=== PATIENT | female | born 1985 | race Caucasian/White ===

== ENCOUNTER 2019-11-19 | Emergency (ER) | payer SELFPAY ==
[~2019-11-19] MED LIST: PAXIL40 MG PO; PRENATAL1 TAB OR
[2019-11-20] MEDS ORDERED: TRAMADOL HCL50 MG PO (01:08)
== END 2019-11-20 01:36 | disposition home or self-care (01) | DRG 999 ==
DX: O9A.219 Injury, poisoning and certain other consequences of external causes complicating pregnancy, unspecified trimester (principal); S06.0X9A Concussion with loss of consciousness of unspecified duration, initial encounter; W19.XXXA Unspecified fall, initial encounter; Y92.008 Other place in unspecified non-institutional (private) residence as the place of occurrence of the external cause; Z3A.00 Weeks of gestation of pregnancy not specified

== ENCOUNTER 2019-11-22 | Emergency (ER) | payer SELFPAY ==
[~2019-11-22] MED LIST changes: +TRAMADOL HCL50 MG PO
[2019-11-22] MEDS ORDERED: POLYTRIM OD (05:17)
== END 2019-11-22 05:33 | disposition home or self-care (01) | DRG 999 ==
DX: O9A.219 Injury, poisoning and certain other consequences of external causes complicating pregnancy, unspecified trimester (principal); S06.0X9A Concussion with loss of consciousness of unspecified duration, initial encounter; S05.01XA Injury of conjunctiva and corneal abrasion without foreign body, right eye, initial encounter; W19.XXXA Unspecified fall, initial encounter; Z3A.00 Weeks of gestation of pregnancy not specified

== ENCOUNTER 2020-03-06 22:46 | Emergency (ER) | payer MEDICAID ==
[~2020-03-06] VITALS: Ht 167.6 cm; Wt 83.0 kg
[~2020-03-06 22:46] MED LIST changes: +POLYTRIM OD
[2020-03-07 00:24] VITALS: BP 112/66
--- NOTE | 2020-03-09 10:28 | NUR ---
Notified patient of + Covid swab performed on 03/06/20. Patient states she is not having any symptoms at this time. Advised her to quarantine unitl the [facility] contacts her with further instructions. Advised her to follow up with PCP and OB. Advised her to return to ED with any urgent needs. Patient verbalized understanding. Offered to contact her OB with results, patient declined states she would call her OB now for further instructions.
== END 2020-03-07 00:21 | disposition home or self-care (01) ==
LOC: ED 22:46
DX: O98.512 Other viral diseases complicating pregnancy, second trimester (principal); U07.1 COVID-19; Z3A.00 Weeks of gestation of pregnancy not specified

== ENCOUNTER 2021-04-19 02:20 | Emergency (ER) | payer MEDICAID ==
[~2021-04-19] VITALS: Ht 167.6 cm; Wt 90.0 kg
[2021-04-19 03:34] LABS: HEMATOCRIT 40.8 % (37.0-47.0); HEMOGLOBIN 13.2 g/dl (12.0-16.0); IMMATURE GRANULOCYTES 0.6 % (0.0-5.0); MEAN CELL VOLUME 85.4 fL CALC (80.0-100.0); MEAN CORPUSCULAR HGB 27.6 pG CALC (26.0-32.0); MEAN CORPUSCULAR HGB CONC 32.4 g/dL CAL (32.0-36.0); NEUT# 9.05 thou/uL (2.00-7.15); RED BLOOD COUNT 4.78 mill/uL (4.20-5.60); RED CELL DISTRI WIDTH 14.3 % (11.5-15.5)
[2021-04-19 03:37] LABS: URINE BILIRUBIN - DIPSTICK NEGATIVE (NEGATIVE); URINE BLOOD DIPSTICK NEGATIVE (NEGATIVE); URINE COLOR YELLOW; URINE GLUCOSE - DIPSTICK NEGATIVE (NEGATIVE); URINE KETONE NEGATIVE (NEGATIVE); URINE LEUK ESTERASE TRACE (NEGATIVE); URINE PROTEIN - DIPSTICK NEGATIVE (NEG-TRACE); URINE SPECIFIC GRAVITY >=1.030; URINE UROBILINOGEN - DIPSTICK 0.2 E.U./dL (0.2)
[2021-04-19 03:38] LABS: URINE NITRITE - DIPSTICK NEGATIVE (Negative)
[2021-04-19 03:50] LABS: ALBUMIN 4.5 g/dL (3.2-5.0); ALKALINE PHOSPHATASE 65 u/l (38-126); AMYLASE 83 u/l (30-110); ANION GAP 11 (6-22 (CALC)); BILIRUBIN, TOTAL 0.3 mg/dL (0.0-1.4); BUN 15 mg/dL (7-17); BUN/CREATININE RATIO 24 (12-20 (CALC)); CARBON DIOXIDE 26 mmol/l (22-30); CHLORIDE 103 mmol/l (95-108); CREATININE 0.6 mg/dL (0.5-1.0); GFR > 60 ML/MIN (>=60 (CALC)); GFR FOR AFR.AMER. > 60 ML/MIN (>=60 (CALC)); LIPASE 59 u/l (23-300); POTASSIUM 3.8 mmol/l (3.5-5.1); SGOT/AST 24 u/l (14-36); SODIUM 136 mmol/l (137-146); TOTAL PROTEIN 8.4 g/dL (6.3-8.2)
[2021-04-19 04:01] LABS: MYOGLOBIN 24 ng/mL (0 - 62)
[2021-04-19 06:40] VITALS: BP 106/62
[2021-04-19] MEDS ORDERED: PREVACID30 M3 PO (06:43)
== END 2021-04-19 07:05 | disposition home or self-care (01) ==
LOC: ED 02:20
PROVIDERS: Emergency Medicine
DX: K29.70 Gastritis, unspecified, without bleeding (principal)
CPT/HCPCS: Q9967; S0164

== ENCOUNTER 2022-01-24 07:37 | Emergency (ER) | payer MEDICAID ==
[~2022-01-24] VITALS: Ht 167.6 cm; Wt 65.0 kg
[~2022-01-24 07:37] MED LIST changes: +PREVACID30 M3 PO
[2022-01-24] MEDS ORDERED: AMOXICILLIN875 MG PO (08:02)
[2022-01-24 08:05] VITALS: BP 120/78
== END 2022-01-24 08:18 | disposition home or self-care (01) ==
LOC: ED 07:37
DX: J02.9 Acute pharyngitis, unspecified (principal); Z20.818 Contact with and (suspected) exposure to other bacterial communicable diseases

== ENCOUNTER 2022-03-07 16:45 | Emergency (ER) | payer MEDICAID ==
[~2022-03-07] VITALS: Ht 167.6 cm; Wt 82.0 kg
[~2022-03-07 16:45] MED LIST changes: +AMOXICILLIN875 MG PO
[2022-03-07 16:53] VITALS: BP 109/72
[2022-03-07 17:17] LABS: URINE BILIRUBIN - DIPSTICK NEGATIVE (NEGATIVE); URINE BLOOD DIPSTICK NEGATIVE (NEGATIVE); URINE COLOR YELLOW; URINE GLUCOSE - DIPSTICK NEGATIVE (NEGATIVE); URINE KETONE TRACE mg/dL (NEGATIVE); URINE LEUK ESTERASE NEGATIVE (NEGATIVE); URINE PH 5.5 (4.5-8.0); URINE PROTEIN - DIPSTICK NEGATIVE (NEG-TRACE); URINE SPECIFIC GRAVITY >=1.030
[2022-03-07 17:23] LABS: URINE NITRITE - DIPSTICK NEGATIVE (Negative)
[2022-03-07 17:33] LABS: HCG SERUM/URINE (NEG/POS) POSITIVE (NEGATIVE)
[2022-03-07 18:04] VITALS: BP 109/72
== END 2022-03-07 18:21 | disposition home or self-care (01) ==
LOC: ED 16:45
PROVIDERS: Nurse Practitioner
DX: R05.9 Cough, unspecified (principal); R53.1 Weakness; Z20.828 Contact with and (suspected) exposure to other viral communicable diseases; Z33.1 Pregnant state, incidental

== ENCOUNTER 2022-03-21 18:53 | Emergency (ER) | payer MEDICAID ==
[~2022-03-21] VITALS: Ht 167.6 cm; Wt 87.0 kg
[2022-03-21] VITALS (12 sets, daily range): BP systolic 103–128; BP diastolic 55–90
[2022-03-21 19:54] LABS: URINE BILIRUBIN - DIPSTICK NEGATIVE (NEGATIVE); URINE BLOOD DIPSTICK LARGE (NEGATIVE); URINE COLOR YELLOW; URINE GLUCOSE - DIPSTICK NEGATIVE (NEGATIVE); URINE KETONE NEGATIVE (NEGATIVE); URINE LEUK ESTERASE NEGATIVE (NEGATIVE); URINE PH 5.5 (4.5-8.0); URINE PROTEIN - DIPSTICK NEGATIVE (NEG-TRACE); URINE SPECIFIC GRAVITY >=1.030; URINE UROBILINOGEN - DIPSTICK 0.2 E.U./dL (0.2)
[2022-03-21 19:54] LABS: HEMATOCRIT 36.4 % (37.0-47.0); HEMOGLOBIN 12.3 g/dl (12.0-16.0); IMMATURE GRANULOCYTES 0.1 % (0.0-5.0); MEAN CELL VOLUME 84.3 fL CALC (80.0-100.0); MEAN CORPUSCULAR HGB 28.5 pG CALC (26.0-32.0); MEAN CORPUSCULAR HGB CONC 33.8 g/dL CAL (32.0-36.0); NEUT# 5.11 thou/uL (2.00-7.15); RED BLOOD COUNT 4.32 mill/uL (4.20-5.60); RED CELL DISTRI WIDTH 13.3 % (11.5-15.5)
[2022-03-21 20:04] LABS: URINE NITRITE - DIPSTICK NEGATIVE (Negative); URINE SQUAMOUS EPITHELIAL CELL FEW EPI/hpf (0-FEW); URINE WBC 0-2 WBC/hpf (0-5)
[2022-03-21 20:10] LABS: ALBUMIN 4.1 g/dL (3.2-5.0); ALKALINE PHOSPHATASE 58 u/l (38-126); ANION GAP 10 (6-22 (CALC)); BILIRUBIN, TOTAL 0.2 mg/dL (0.0-1.4); BUN 11 mg/dL (7-17); BUN/CREATININE RATIO 20 (12-20 (CALC)); CARBON DIOXIDE 23 mmol/l (22-30); CHLORIDE 105 mmol/l (95-108); CREATININE 0.5 mg/dL (0.5-1.0); GFR FOR AFR.AMER. > 60 ML/MIN (>=60 (CALC)); GFR OTHER RACES > 60 ML/MIN (>=60 (CALC)); POTASSIUM 3.6 mmol/l (3.5-5.1); SGOT/AST 23 u/l (14-36); SODIUM 135 mmol/l (137-146); TOTAL PROTEIN 7.1 g/dL (6.3-8.2)
[2022-03-21 20:57] LABS: BETA-HCG, QUANT(RESULT NUMBER) 25753 mIU/mL
== END 2022-03-21 22:38 | disposition home or self-care (01) ==
LOC: ED 18:53
PROVIDERS: Emergency Medicine
DX: O20.0 Threatened abortion (principal); O99.891 Other specified diseases and conditions complicating pregnancy; N88.8 Other specified noninflammatory disorders of cervix uteri; Z3A.00 Weeks of gestation of pregnancy not specified

== ENCOUNTER 2022-08-28 20:01 | Emergency (ER) | payer MEDICAID ==
[~2022-08-28] VITALS: Ht 167.6 cm; Wt 91.8 kg
[2022-08-28 20:09] VITALS: BP 124/86
[2022-08-28 20:51] LABS: HEMATOCRIT 30.8 % (37.0-47.0); HEMOGLOBIN 10.2 g/dl (12.0-16.0); IMMATURE GRANULOCYTES 0.2 % (0.0-5.0); MEAN CELL VOLUME 80.2 fL CALC (80.0-100.0); MEAN CORPUSCULAR HGB 26.6 pG CALC (26.0-32.0); MEAN CORPUSCULAR HGB CONC 33.1 g/dL CAL (32.0-36.0); NEUT# 6.1 thou/uL (2.00-7.15); RED BLOOD COUNT 3.84 mill/uL (4.20-5.60); RED CELL DISTRI WIDTH 13.2 % (11.5-15.5)
[2022-08-28 20:54] LABS: URINE BILIRUBIN - DIPSTICK NEGATIVE (NEGATIVE); URINE BLOOD DIPSTICK NEGATIVE (NEGATIVE); URINE COLOR YELLOW; URINE GLUCOSE - DIPSTICK NEGATIVE (NEGATIVE); URINE KETONE NEGATIVE (NEGATIVE); URINE LEUK ESTERASE TRACE (NEGATIVE); URINE PROTEIN - DIPSTICK NEGATIVE (NEG-TRACE); URINE SPECIFIC GRAVITY >=1.030
[2022-08-28 20:56] LABS: URINE NITRITE - DIPSTICK NEGATIVE (Negative)
[2022-08-28 20:57] LABS: ALBUMIN 3.6 g/dL (3.2-5.0); ALKALINE PHOSPHATASE 87 u/l (38-126); ANION GAP 10 (6-22 (CALC)); BUN 10 mg/dL (7-17); BUN/CREATININE RATIO 16 (12-20 (CALC)); CARBON DIOXIDE 26 mmol/l (22-30); CHLORIDE 105 mmol/l (95-108); CREATININE 0.6 mg/dL (0.5-1.0); GFR FOR AFR.AMER. > 60 ML/MIN (>=60 (CALC)); GFR OTHER RACES > 60 ML/MIN (>=60 (CALC)); SGOT/AST 30 u/l (14-36); SODIUM 137 mmol/l (137-146)
[2022-08-28 20:58] LABS: BILIRUBIN, TOTAL 0.3 mg/dL (0.0-1.4)
[2022-08-28 22:17] VITALS: BP 123/81
[2022-08-28 22:30] VITALS: BP 112/67
[2022-08-28 22:36] VITALS: BP 112/67
== END 2022-08-28 22:44 | disposition home or self-care (01) ==
LOC: ED 20:01
PROVIDERS: Family Medicine
DX: O26.893 Other specified pregnancy related conditions, third trimester (principal); R10.9 Unspecified abdominal pain; O09.213 Supervision of pregnancy with history of pre-term labor, third trimester; Z3A.29 29 weeks gestation of pregnancy

== ENCOUNTER 2022-09-20 14:16 | Emergency (ER) | payer MEDICAID ==
[~2022-09-20] VITALS: Ht 167.6 cm; Wt 88.0 kg
[2022-09-20 14:23] VITALS: BP 119/76
[2022-09-20] MEDS ORDERED: MAKENA250 MG/ML IM (14:31)
[2022-09-20 15:00] VITALS: BP 116/67
[2022-09-20 15:13] LABS: BASO% 0.3 % (0-3); EOS% 1.4 % (0-8); HEMATOCRIT 31.4 % (37.0-47.0); HEMOGLOBIN 10.2 g/dl (12.0-16.0); IMMATURE GRANULOCYTES 0.2 % (0.0-5.0); MEAN CELL VOLUME 77.3 fL CALC (80.0-100.0); MEAN CORPUSCULAR HGB 25.1 pG CALC (26.0-32.0); MEAN CORPUSCULAR HGB CONC 32.5 g/dL CAL (32.0-36.0); MONO% 3.6 % (2-13); NEUT# 9.49 thou/uL (2.00-7.15); NEUT% 78.5 % (42-76); RED BLOOD COUNT 4.06 mill/uL (4.20-5.60); RED CELL DISTRI WIDTH 13.9 % (11.5-15.5)
[2022-09-20 15:31] VITALS: BP 104/58
[2022-09-20 15:39] LABS: ALBUMIN 3.8 g/dL (3.2-5.0); ALKALINE PHOSPHATASE 122 u/l (38-126); ANION GAP 9 (6-22 (CALC)); BILIRUBIN, TOTAL 0.2 mg/dL (0.0-1.4); BUN 9 mg/dL (7-17); BUN/CREATININE RATIO 18 (12-20 (CALC)); CARBON DIOXIDE 27 mmol/l (22-30); CHLORIDE 104 mmol/l (95-108); CREATININE 0.5 mg/dL (0.5-1.0); GFR FOR AFR.AMER. > 60 ML/MIN (>=60 (CALC)); GFR OTHER RACES > 60 ML/MIN (>=60 (CALC)); POTASSIUM 3.7 mmol/l (3.5-5.1); SGOT/AST 33 u/l (14-36); SODIUM 136 mmol/l (137-146); TOTAL PROTEIN 7.2 g/dL (6.3-8.2)
[2022-09-20 15:45] VITALS: BP 104/58
== END 2022-09-20 15:54 | disposition short-term general hospital (02) ==
LOC: ED 14:16
PROVIDERS: Family Medicine
DX: O60.03 Preterm labor without delivery, third trimester (principal); O34.33 Maternal care for cervical incompetence, third trimester; Z3A.32 32 weeks gestation of pregnancy

== ENCOUNTER 2024-10-31 01:49 | Emergency (ER) | payer SELFPAY ==
[~2024-10-31] VITALS: Ht 167.6 cm; Wt 70.0 kg
[~2024-10-31 01:49] MED LIST changes: +MAKENA250 MG/ML IM
[2024-10-31 02:15] VITALS: BP 118/93
[2024-10-31] MEDS ORDERED: AMOX/K CLAV875 M1 PO (02:22)
[2024-10-31] MEDS ORDERED: AMOXICILLIN & POT CLAVULANATE 875 MG/TAB PO ONE (02:25)
[2024-10-31 02:30] VITALS: BP 110/73
[2024-10-31 02:36] VITALS: BP 118/93
== END 2024-10-31 02:38 | disposition home or self-care (01) | DRG 153 ==
LOC: ED 01:49
DX: H66.92 Otitis media, unspecified, left ear (principal)

== ENCOUNTER 2024-11-15 14:32 | Emergency (ER) | payer MEDICARE ==
[~2024-11-15] VITALS: Ht 167.6 cm; Wt 80.0 kg
[~2024-11-15 14:32] MED LIST changes: +AMOX/K CLAV875 M1 PO
[2024-11-15 19:21] VITALS: BP 128/78
== END 2024-11-15 19:21 | disposition home or self-care (01) ==
LOC: ED 14:32
DX: Z32.01 Encounter for pregnancy test, result positive (principal)